=== PATIENT | female | born 1970 | race Caucasian/White ===

== ENCOUNTER 2019-06-17 07:31 | Day surgery (SDC) | payer BC ==
[2019-06-17] VITALS (7 sets, daily range): BP systolic 101–124; BP diastolic 61–76; PULSE 68–79; RESP 17–20; Ht 165.1 cm; Wt 82.6 kg
[~2019-06-17] VITALS: Ht 165.1 cm; Wt 82.6 kg
[~2019-06-17 07:31] MED LIST: ZYRTEC
[2019-06-17] MEDS ORDERED: MIDAZOLAM 1 MG/ML 2 ML INJ ONE ×2 (09:20)
[2019-06-17] MEDS ORDERED: FENTAnyl 50 MCG/ML VIAL ONE (09:21)
--- NOTE | 2019-06-17 20:51 | GILP ---
DATE OF PROCEDURE: 06/17/2019 PROCEDURE: Colonoscopy with multiple polypectomy with cold snare. INDICATION: A 48-year-old female undergoing this procedure for screening colonoscopy. The risk of t he procedure, related and unrelated complications, sedative risks, alternatives were discussed. Info rmed consent was obtained. DESCRIPTION OF PROCEDURE: The patient was brought to the GI lab, sedated with Versed 3 mg, fentanyl 75 mcg. After optimal sedation, digital examination was done, which was normal. Scope was passed wi th much ease into the rectum, advanced through sigmoid, descending, transverse colon all the way into the cecum. Appendiceal orifice was identified. IC valve was identified. The pictures on the compu ter monitors were not working and could not take any picture. Near the hepatic flexure, there was a 6 mm polyp successfully removed by cold snare technique. There was another flat polyp near the dista l transverse colon. It was on fold, barely visible again successfully removed by cold snare techniqu e. There was a third polyp around 50 cm. This was a flat right on the fold hiding in between techni marley making it difficult with a cold snare technique. Polyp was removed. Still small tissue was le ft behind, but the depth was slightly deeper. No muscularis propria was visible. Still, we deployed the 2 metallic stents to prevent perforation. The polyp was retrieved. The polyp which I removed, this one was on the fold and angulation technically is very difficult even to deploy the endoclip. T here was another polyp identified in the rectum that was removed with cold snare technique. Plan is to review the histopathology of all the polyps. The patient definitely needs a repeat colonoscopy in 2 years. IMPRESSION: 1. Polyp removed from the hepatic flexure which was 6 mm in diameter by cold snare technique. 2. Polyp flat 1.2 cm successfully removed by cold snare technique near the distal transverse colon. 3. Polyp at 50 cm either near the splenic flexure or proximal descending colon removed by cold snare technique. Endoclip deployed. This was right on the fold at the angulation technically making it d ifficult to visualize the whole polyp and 2 endoclip deployed. Small tissue was left behind. 4. Polyp in the rectum successfully removed by cold snare technique. PLAN: At this point is to stay on high fiber diet, stay away from aspirin or NSAID for at least 10 d ays. We will review the histopathology of the polyp and patient definitely needs repeat colonoscopy in 2 years. Dictated By: OFELIA CLIFTON/KEELY Conf#: [id number] DID#: [id number]
== END 2019-06-17 10:29 | disposition home or self-care (01) ==
LOC: GIL 07:31
PROVIDERS: ATTEND Internal Medicine Gastroenterology
DX: Z12.11 Encounter for screening for malignant neoplasm of colon (principal); D12.4 Benign neoplasm of descending colon; D12.3 Benign neoplasm of transverse colon; D12.8 Benign neoplasm of rectum
CPT/HCPCS: 45385; 84703; 88305; J2250; J3010; Z7610